=== PATIENT | male | born 1985 | race Caucasian/White ===

== ENCOUNTER 2019-09-26 00:52 | Emergency (ER) | payer OTHER ==
[~2019-09-26] VITALS: Ht 167.6 cm; Wt 63.0 kg
--- NOTE | 2019-09-26 01:21 | NUR ---
PT PRESENTS WITH SMALL LAC TO CHIN. BLEEDING CONTROLLED. PT STATES HE WAS STANDING WITH NEIGHBOR, BECAME VERY DIZZY AND THEN FELL AND HIT CHIN ON RAILING. DENIES LOC. NO ACUTE NEURO CHANAGES NOTED AT THIS TIME. SINUS TACHY ON MONITOR, OTHERWISE VSS. CALL LIGHT IN REACH. PROVIDER AT BEDSIDE TO BRANDON.
[2019-09-26] MEDS ORDERED: LIDOCAINE 1%, 10ML INFIL ONE (02:00)
[2019-09-26 02:05] LABS: BASOPHILS # (AUTO) 0.01 x10^3/uL (0-0.1); BASOPHILS % (AUTO) 0 % (0-1); EOSINOPHILS # (AUTO) 0.11 x10^3/uL (0-0.4); EOSINOPHILS % (AUTO) 1 % (1-7); LYMPHOCYTES # (AUTO) 1.18 x10^3/uL (1-3.4); LYMPHOCYTES % (AUTO) 11 % (22-44); MD NO; MEAN CORPUSCULAR HEMOGLOBIN 33.3 pg (27.5-34.5); MEAN CORPUSCULAR HGB CONC 34.7 g/dL (33.2-36.2); MEAN CORPUSCULAR VOLUME 96.2 fL (81-97); MEAN PLATELET VOLUME 9.1 fL (7.4-10.4); MONOCYTES # (AUTO) 0.65 x10^3/uL (0.2-0.8); MONOCYTES % (AUTO) 6 % (2-9); NEUTROPHILS # (AUTO) 9.29 x10^3/uL (1.8-6.8); NEUTROPHILS % (AUTO) 83 % (42-75); PLATELET COUNT 174 x10^3/uL (130-400); RED BLOOD COUNT 4.69 x10^6/uL (4.38-5.82); RED CELL DISTRIBUTION WIDTH 14.1 % (9.4-14.8)
[2019-09-26 02:14] LABS: ALANINE AMINOTRANSFERASE 30 U/L (12-78); ALBUMIN 3.7 g/dL (3.4-5.0); ANION GAP 6 mmol/L (5-15); CALCIUM 8.4 mg/dL (8.5-10.1); CHLORIDE 104 mmol/L (98-107); CREATININE 0.86 mg/dL (0.7-1.3)
[2019-09-26 02:24] LABS: ALKALINE PHOSPHATASE 64 U/L (45-117); BILIRUBIN,TOTAL 0.6 mg/dL (0.2-1.0); TOTAL PROTEIN 6.9 g/dL (6.4-8.2)
[2019-09-26] MEDS ORDERED: LIDOCAINE-MPF 1%, 5ML ONE (02:33)
--- NOTE | 2019-09-26 02:43 | NUR ---
Orthostatic VS completed. Pt tolerated well. PA aware. Tech at bedside for wound cleaning.
--- NOTE | 2019-09-26 03:09 | NUR ---
PT up to bedside to use urinal. States he is feeling better at this time. PA at bedside for suture repair. No further needs expressed. VSS. Call light in reach.
[2019-09-26] MEDS ORDERED: DIPH,PERTUSS(ACELL),TET VAC/PF 0.5 ML IM-VACC ONE (03:30)
[2019-09-26 03:52] VITALS: BP 122/80
== END 2019-09-26 03:54 | disposition home or self-care (01) ==
LOC: ED 01:36
DX: S01.81XA Laceration without foreign body of other part of head, initial encounter (principal); S01.511A Laceration without foreign body of lip, initial encounter; R42 Dizziness and giddiness; R00.0 Tachycardia, unspecified; W22.8XXA Striking against or struck by other objects, initial encounter; Y93.89 Activity, other specified; Y92.89 Other specified places as the place of occurrence of the external cause; Y99.8 Other external cause status
CPT/HCPCS: 12052; 36415; 80053; 84443; 85025; 93005; 99285

== ENCOUNTER 2019-09-27 12:50 | Emergency (ER) | payer SELFPAY ==
[~2019-09-27] VITALS: Ht 167.6 cm; Wt 59.5 kg
[2019-09-27 12:54] VITALS: BP 125/83
[2019-09-27] MEDS ORDERED: DIPH,PERTUSS(ACELL),TET VAC/PF 0.5 ML IM-VACC ONE ×2 (13:35→14:00)
== END 2019-09-27 14:01 | disposition home or self-care (01) ==
LOC: ED 13:47
DX: S01.81XA Laceration without foreign body of other part of head, initial encounter (principal); Z23 Encounter for immunization; F17.200 Nicotine dependence, unspecified, uncomplicated; W22.8XXA Striking against or struck by other objects, initial encounter; Y93.89 Activity, other specified; Y92.89 Other specified places as the place of occurrence of the external cause; Y99.8 Other external cause status
CPT/HCPCS: 90471; 90715; 99281; 99283